=== PATIENT | female | born 1990 | race Caucasian/White ===

== ENCOUNTER 2017-06-05 21:40 | Emergency (ER) | payer OTHER ==
[2017-06-05 21:55] VITALS: PULSE 74; RESP 16; TEMP 98.4
--- NOTE | 2017-06-05 21:57 | EDPHY ---
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 She sustained trauma to her left shoulder left elbow and left hip. She complains of 6/10 left shoulder left elbow left hip pain. She is ambulatory. GCS 15. Alert and orient x4. Denies any other areas of injury. Past Medical History: Denies medical history Past Surgical History: Denies recent surgical history Social History: Denies daily use of drugs alcohol tobacco products. Family History: Noncontributory ROS REVIEW OF SYSTEMS: A comprehensive 10 point review of systems is otherwise negative aside from elements mentioned in the history of present illness. Exam Constitutional appears well nontoxic triage nursing summary reviewed, vital signs reviewed, awake/alert. Eyes normal conjunctivae and sclera, EOMI, PERRLA. HENT normal inspection, atraumatic, moist mucus membranes, no epistaxis, neck supple/ no meningismus, no raccoon eyes. Respiratory clear to auscultation bilaterally, normal breath sounds, no respiratory distress, no wheezing. Cardiovascular rate normal, regular rhythm, no murmur, no edema, distal pulses normal. Gastrointestinal soft, non-tender, no rebound, no guarding, normal bowel sounds, no distension, no pulsatile mass. Genitourinary no CVA tenderness. Musculoskeletal lue: Neurovascular intact good distal pulse, good cap refill, good snack bar attendant strength. Sensation intact. Tender palpation over the left lateral shoulder with limited range of motion due to pain, tender palpation over the posterior olecranon left elbow, limited range of motion due to pain, compartments are soft. Left lower extremity tender palpation over the left lateral hip: Distally neurovascular intact. no midline vertebral tenderness, full range of motion, no calf swelling, no tenderness of extremities, no meningismus, good pulses, neurovascularly intact. Skin pink, warm, & dry, no rash, skin atraumatic. Neurologic awake, alert and oriented x 3, AAOx3, moves all 4 extremities equally, motor intact, sensory intact, CN II-XII intact, normal cerebellar, normal vision, normal speech. Psychiatric normal mood/affect. Heme/Lymph/Immune no lymphadenopathy. Differential Diagnosis: Includes but is not limited to in a particular order multiple contusions, soft tissue injury, elbow fracture, shoulder fracture, shoulder dislocation, hip fracture, hip contusion. Medical Decision Making: Plan for this patient x-ray left elbow, x-ray left shoulder, left hip x-ray, ibuprofen 800 mg for pain control and re-evaluate. Re-evaluation: X-ray of the left elbow, left hip, and left shoulder are unremarkable for acute fracture these were interpreted by myself. The patient be placed in a sling and posterior long-arm splint of her left elbow she has significant pain over left elbow. Cannot rule out occult fracture. I do recommend she follows up with Orthopedics. She is neurovascularly intact. She is comfortable this plan. Source: Patient - Personal History LMP (Females 10-55): Over 28 Days Ago Current Tetanus/Diphtheria Vaccine: Yes Current Tetanus Diphtheria and Acellular Pertussis (TDAP): Yes - Medical/Surgical History Hx Asthma: Yes Hx Chronic Respiratory Disease: No Hx Diabetes: No Hx Cardiac Disease: No Hx Renal Disease: No Hx Cirrhosis: No Hx Alcoholism: No Hx HIV/AIDS: No Hx Splenectomy or Spleen Trauma: No Other PMH: asthma, tubes in ears,cholecystectomy - Social History Smoking Status: Current every day smoker Constitutional: Initial Vital Signs Temperature (C) 36.9 C 06/05/17 21:51 Heart Rate 74 06/05/17 21:51 Respiratory Rate 16 06/05/17 21:51 Blood Pressure 119/75 06/05/17 21:51 O2 Sat (%) 98 06/05/17 21:51 O2 Delivery Mode Room Air Allergies/Adverse Reactions: latex Allergy (Verified 06/05/17 21:55) morphine Allergy (Verified 06/05/17 21:55) Sulfa (Sulfonamide Antibiotics) Allergy (Verified 06/05/17 21:55) Home Medications: Medication Instructions Recorded Ibuprofen [Motrin (*)] 800 mg PO Q6-8PRN #10 tab 06/05/17 Medical Decision Making - Data Points Medications Given: Discontinued Medications Ibuprofen (Motrin) 800 mg PO EDNOW ONE Stop: 06/05/17 22:02 Last Admin: 06/05/17 22:37 Dose: 800 mg Departure - Departure Disposition: Home, Routine, Self-Care Clinical Impression: Multiple contusions Condition: Good Instructions: Hip Contusion (ED), Contusion in Adults (ED) Additional Instructions: 1. Sling and splint for comfort. 2. Take ibuprofen for pain control. 3. Follow up with Orthopedics. 4. Return emergency room if you have worsening symptoms questions or concerns. Referrals: [facility] [Other] - As per Instructions Beto Stubbs MD [Medical Doctor] - As per Instructions Prescriptions: Ibuprofen [Motrin (*)] 800 mg PO Q6-8PRN #10 tab
[2017-06-05] MEDS ORDERED: IBUPROFEN 800 MG TAB PO ONE (22:01)
[2017-06-05 23:27] VITALS: BP 130/78; O2SAT 94
== END 2017-06-05 23:25 | disposition home or self-care (01) ==
DX: T14.8XXA Other injury of unspecified body region, initial encounter (principal); J45.909 Unspecified asthma, uncomplicated; F17.200 Nicotine dependence, unspecified, uncomplicated; Z91.040 Latex allergy status; W00.0XXA Fall on same level due to ice and snow, initial encounter; Y99.0 Civilian activity done for income or pay; Y93.89 Activity, other specified
CPT/HCPCS: A4565

== ENCOUNTER → 2017-06-06 | Outpatient (CLI) | payer OTHER | LOC: BRMIMAGING 14:13 | PROVIDERS: ATTEND Internal Medicine | DX: S69.92XA Unspecified injury of left wrist, hand and finger(s), initial encounter (principal) | CPT/HCPCS: 73130-PO ==